=== PATIENT | female | born 1980 | race Caucasian/White ===

== ENCOUNTER 2021-06-24 09:29 | Inpatient (IN) ==
--- NOTE | 2021-06-24 10:56 | XRay Report ---
XR chest 1V portable INDICATION: [place] ^+COVID, SOB, Cough. TECHNIQUE: Single frontal radiograph of the chest was obtained. Comparison: Chest 1 view 07/15/2016 FINDINGS: No lines and tubes are seen. The cardiomediastinal silhouette is normal. Lungs are underinflated. The re are ill-defined airspace opacities most prominent in the left lower lung No evidence of pleural ef fusion or pneumothorax. IMPRESSION: Ill-defined air space opacities most prominent in the left lower lung may represent findings of viral pneumonia. ACT 112: Negative or not required by law. Electronically signed by: Ronan Montenegro M.D. 06/24/2021 10:55 AM
[2021-06-24] MEDS ORDERED: ONDANSETRON INJ 2 MG/ML 2 ML VIAL IV STA (11:48)
[2021-06-24] MEDS ORDERED: DEXAMETHASONE SOD INJ 4 MG/ML VIAL IV STA (11:48)
[2021-06-24] MEDS ORDERED: SODIUM CHLORIDE 0.9% 1000ML 1,000 ML IV SCH (12:00)
[2021-06-24 12:05] LABS: Partial Thromboplastin Ratio 1.1; Partial Thromboplastin Time 28.4 Seconds (21.0-31.0)
[2021-06-24 12:07] LABS: Albumin Level 3.4 gm/dl (3.4-5.0); Calcium 8.1 mg/dl (8.5-10.1); Creatinine Clr Calc Pharmacy 121.2 ml/min; Est GFR (Non-African American) 88.9 ml/min; Magnesium 1.6 mg/dl (1.8-2.4); Potassium 3.3 mmol/L (3.5-5.1)
[2021-06-24 12:09] LABS: Albumin Globulin Ratio 0.9 (0.9-2); Bilirubin,Total 0.6 mg/dl (0.2-1); Globulin 3.7 gm/dl (2.5-4.0); Total Protein 7.1 gm/dl (6.4-8.2)
[2021-06-24 12:32] LABS: Hematocrit (blood only) 41.7 % (37-47); Mean Corpuscular Hemoglobin 29.4 pg (25-34); Mean Corpuscular Hgb Conc 33.6 g/dL (32-36); Mean Corpuscular Volume 87.4 fL (80-100); Mean Platelet Volume 10.9 fL (7.4-10.4); Platelet Count 97 K/uL (130-400); RDW Coefficient of Variation 12.6 % (11.5-14.5); RDW Standard Deviation 40.3 fL (36.4-46.3); Red Blood Count 4.77 M/uL (4.2-5.4); White Blood Count 2.21 K/uL (4.8-10.8)
[2021-06-24 12:33] LABS: Basophils # (auto) 0.01 K/uL (0-0.2); Basophils % (auto) 0.5 %; Eosinophils # (auto) 0.01 K/uL (0-0.5); Eosinophils % (auto) 0.5 %; Immature Granulocytes # (auto) 0.02 K/uL (0.00-0.02); Immature Granulocytes % (auto) 0.9 %; Lymphocytes # (auto) 0.48 K/uL (1.2-3.4); Lymphocytes % (auto) 21.7 %; Monocytes # (auto) 0.16 K/uL (0.11-0.59); Monocytes % (auto) 7.2 %; Neutrophils # (auto) 1.53 K/uL (1.4-6.5); Neutrophils % (auto) 69.2 %; Platelet Estimate Decreased (Normal)
[2021-06-24] MEDS ORDERED: ACETAMINOPHEN 500 MG TAB PO STA (13:25)
[2021-06-24 13:46] LABS: Appearance Urine Slightly Cloudy (Clear); Bilirubin Urine 2+ (Negative); Blood Urine Negative (Negative); Glucose Urine UA Negative (Negative); Ketones Urine 1+ (Negative); Leukocyte Esterase Urine Negative (Negative); Nitrite Urine Negative (Negative); Protein Urine 2+ (Negative); Specific Gravity Urine 1.025 (1.000-1.030); Urobilinogen Urine Negative (Negative)
[2021-06-24 13:54] LABS: Color Urine Dark Yellow
[2021-06-24] MEDS ORDERED: OPTIRAY 320 125ml IV ONE (13:54)
[2021-06-24 13:55] LABS: Lyme Ab IgG w/WB Rflx Negative (Negative); Lyme Ab IgM w/WB Rflx Negative (Negative)
[2021-06-24 13:56] LABS: Epithelial Cell Urine >30 /lpf (0-5)
[2021-06-24 13:56] LABS: Base Excess VBG 0.4 mEq/L; pH VBG 7.46 (7.36-7.41)
[2021-06-24 13:58] LABS: Bacteria Urine Negative (Negative); RBC Urine 0-4 /hpf (0-4); WBC Urine 0-5 /hpf (0-5)
--- NOTE | 2021-06-24 14:14 | CT Scan Report ---
CT ANGIOGRAPHY OF THE CHEST, PULMONARY EMBOLUS PROTOCOL CLINICAL HISTORY: Fever. Cough. Evaluate for pulmonary embolus. COMPARISON STUDY: Chest CT July 15, 2016. Chest radiograph June 24, 2021. TECHNIQUE: Following IV administration of 120 mL of Optiray, helical axial images of the chest were o btained utilizing the pulmonary embolus protocol. Maximal intensity projections and sagittal and cor onal reformats were viewed on an independent 3D workstation. IV contrast was administered without co mplication. Automated exposure control was utilized for the study. A dose lowering technique was ut ilized adhering to the principles of ALARA. CT DOSE: 478.15 mGycm FINDINGS: No pulmonary emboli are identified although this exam is mildly compromised by artifact. T here is no thoracic aortic dissection. No pathologically enlarged thoracic lymph nodes are present. N ote is made of cardiomegaly. There is no pericardial effusion. No pneumothorax is present. Moderate m ultifocal groundglass opacities are noted throughout the lungs with developing right lower lobe conso lidation. Central airways are patent. Visualized portions of the upper abdomen demonstrate splenomega ly. IMPRESSION: 1. No pulmonary emboli identified although exam mildly compromised by artifact. 2. Moderate multifocal groundglass opacities throughout the lungs with developing right lower lobe co nsolidation consistent with viral pneumonia. 3. Cardiomegaly. ACT 112: Negative or not required by law. Electronically signed by: Sedrick Damian M.D. 06/24/2021 2:12 PM
[2021-06-24] MEDS ORDERED: MAGNESIUM SULFATE / D5W 1 GM/100 ML BAG IV STA ×2 (14:44→15:42)
[2021-06-24] MEDS ORDERED: POTASSIUM CHLORIDE CRTAB 20 MEQ TABCR PO STA (14:44)
--- NOTE | 2021-06-24 14:46 | History & Physical Report ---
Date of Service June 24, 2021 Assessment & Plan (1) Acute respiratory failure with hypoxia: (2) Pneumonia due to 2019 novel coronavirus: Plan: This is a 41yo F with a PMH of chronic back pain who presents with fever and body aches x 8 days and was found to have Covid 19. Fever, chills, body aches, pleuritic cough x 8 days, known Covid exposure () Initially hypoxic at 84% on room air, now saturating 91% on 2 L nasal cannula O2 SARS-CoV-2 test positive today Chest CTA without evidence of PE. Moderate multifocal groundglass opacities throughout the lungs with developing right lower lobe consolidation consistent with viral pneumonia Endorsing blood streaked sputum at home, hgb stable, continue to monitor and consider pulm involvement if worsens Continue IV dexamethasone, added Remdesivir, cough suppressants PRN, incentive spirometry, supplemental O2 PRN Covid isolation precautions (3) Migraine headache: Plan: Has developed a migraine headache since arrival Do not have her home med Relpax on formulary but given Imitrex Tylenol and Zofran PRN (4) Chronic back pain: Plan: Gabapentin TID, Flexeril as needed DVT Ppx: SQ Lovenox Code status: FULL PCP: Velma Dispo: Admitted to PCU covid unit Patient seen in collaboration with Dr. Wan. Please see addendum. History of Present Illness Chief Complaint: fever, congestion Primary Care Provider: Jovanny Carreon, This is a 41yo F with a PMH of chronic back pain who presents with fever and body aches x 8 days. First developed fever, chills and body aches as well as diarrhea and decreased appetite. Later on this week she also developed productive cough, and pleuritic chest pain. Patient endorses a small amount of bright red blood streaking mucous. The amount is less than a tea spoon. Lost ability to taste but still has sense of smell. had similar symptoms and tested positive for Covid this week. Is not vaccinated. No respiratory issues at baseline. No lightheadedness, vomiting, abdominal pain, dysuria, diarrhea or constipation. Follows with Dr. Carreon for primary care. Allergies Allergy/AdvReac Type Severity Reaction Status Date / Time No Known Allergies Allergy Verified 06/24/21 12:25 Home Medications Medication Instructions Recorded Confirmed Type Otc Acid Color Worker 1 tab PO DAILY PRN 06/24/21 06/24/21 History cyclobenzaprine 10 mg tablet 10 mg PO TID PRN 06/24/21 06/24/21 History eletriptan 40 mg tablet 40 mg PO UD PRN 06/24/21 06/24/21 History estradiol 0.1 mg/24 hr semiweekly 1 patch TOPICAL [id number] 06/24/21 06/24/21 History transdermal patch (Jazmyn) ibuprofen 200 mg tablet 400 mg PO Q6H PRN 06/24/21 06/24/21 History Past Med/Surg History Medical History (Updated 06/24/21 @ 16:09 by Halle Trevino PA-C) Chronic back pain Migraine headache Surgical History History of hysterectomy Family History Other No pertinent family history Social History (Updated 06/24/21 @ 16:09 by Halle Trevino PA-C) Smoking Status: Never smoker Hx Alcohol Use: Yes Alcohol Intake Frequency: 2-4 x/Month Hx Substance Use: No Feels Safe at Home: Yes Review of Systems Review of Systems: At least ten systems reviewed and negative except as noted in the HPI. Physical Exam Physical Exam: Please see Dr. Wan's addendum for physical exam. Results & Data Results & Data ([facility]) Vital Signs (Past 12 Hours) Vital Signs Temp Pulse Resp BP Pulse Ox 06/24/21 14:30 75 20 163/106 H 92 06/24/21 14:03 76 24 96 06/24/21 13:30 91 H 22 164/110 H 91 06/24/21 13:00 87 26 H 178/125 H 93 06/24/21 12:30 81 24 174/99 H 92 06/24/21 12:16 37.5 C 06/24/21 12:01 76 26 H 142/89 H 94 06/24/21 11:51 84 L 06/24/21 11:30 79 23 155/100 H 90 06/24/21 11:00 79 22 133/88 91 06/24/21 10:30 81 24 130/86 96 06/24/21 10:22 83 20 149/82 H 91 06/24/21 09:34 37.3 C 93 H 16 143/104 H 94 Laboratory Results Short CBC 06/24/21 Range/Units 10:29 WBC 2.21 L (4.8-10.8) K/uL Hgb 14.0 (12.0-16.0) g/dL Hct 41.7 (37-47) % Plt Count 97 L (130-400) K/uL BMP 06/24/21 10:29 Sodium 143 Potassium 3.3 L Chloride 110 H Carbon Dioxide 25 BUN 11 Creatinine 0.82 Glucose 97 Calcium 8.1 L Liver Function 06/24/21 Range/Units 10:29 Total Bilirubin 0.6 (0.2-1) mg/dl AST 60 H (15-37) U/L ALT 78 (12-78) U/L Alkaline Phosphatase 103 (45-117) U/L Albumin 3.4 (3.4-5.0) gm/dl Urine 06/24/21 Range/Units 10:20 Urine Color Dark Yellow Urine Appearance Slightly Cloudy (Clear) Urine pH 6.0 (4.5-7.5) Ur Specific Happy 1.025 (1.000-1.030) Urine Protein 2+ H (Negative) Urine Glucose (UA) Negative (Negative) Diagnostic Findings Chest X-Ray 06/24/21 10:15 XR chest 1V portable INDICATION: [place] ^+COVID, SOB, Cough. TECHNIQUE: Single frontal radiograph of the chest was obtained. Comparison: Chest 1 view 07/15/2016 FINDINGS: No lines and tubes are seen. The cardiomediastinal silhouette is normal. Lungs are underinflated. There are ill-defined airspace opacities most prominent in the left lower lung No evidence of pleural effusion or pneumothorax. IMPRESSION: Ill-defined air space opacities most prominent in the left lower lung may represent findings of viral pneumonia. ACT 112: Negative or not required by law. Electronically signed by: Ronan Montenegro M.D. 06/24/2021 10:55 AM Chest CTA 06/24/21 12:39 CT ANGIOGRAPHY OF THE CHEST, PULMONARY EMBOLUS PROTOCOL CLINICAL HISTORY: Fever. Cough. Evaluate for pulmonary embolus. COMPARISON STUDY: Chest CT July 15, 2016. Chest radiograph June 24, 2021. TECHNIQUE: Following IV administration of 120 mL of Optiray, helical axial images of the chest were obtained utilizing the pulmonary embolus protocol. Maximal intensity projections and sagittal and coronal reformats were viewed on an independent 3D workstation. IV contrast was administered without complication. Automated exposure control was utilized for the study. A dose lo wering technique was utilized adhering to the principles of ALARA. CT DOSE: 478.15 mGycm FINDINGS: No pulmonary emboli are identified although this exam is mildly compromised by artifact. There is no thoracic aortic dissection. No pathologically enlarged thoracic lymph nodes are present. Note is made of cardiomegaly. There is no pericardial effusion. No pneumothorax is present. Moderate multifocal groundglass opacities are noted throughout the lungs with developing right lower lobe consolidation. Central airways are patent. Visualized portions of the upper abdomen demonstrate splenomegaly. IMPRESSION: 1. No pulmonary emboli identified although exam mildly compromised by artifact. 2. Moderate multifocal groundglass opacities throughout the lungs with developing right lower lobe consolidation consistent with viral pneumonia. 3. Cardiomegaly. ACT 112: Negative or not required by law. Electronically signed by: Sedrick Damian M.D. 06/24/2021 2:12 PM Code Status & VTE Plan VTE Prophylaxis Plan VTE Prophylaxis will be ordered: Yes
[2021-06-24] MEDS ORDERED: POTASSIUM CHLORIDE 10 MEQ TABCR PO STA (15:41)
--- NOTE | 2021-06-24 15:41 | Emergency Department Note ---
History of Present Illness General Chief complaint: Fever Stated complaint: FEVER,CHILLS,VOMITING BLOOD, LIGHT HEADED Time Seen by Provider: 06/24/21 10:06 History of Present Illness Provider complaint: Cough nausea vomiting diarrhea fever body aches Onset (ago): day(s) 8 Maximum Pain Intensity: 8 Quality: + aching Associated symptoms: + cough, + fever/chills, + headaches, + malaise, + nausea/vomiting, + shortness of breath and + weakness; no chest pain, no rash or no syncope 41-year-old female presents emergency department for cough, nausea, vomiting, diarrhea, fever, and body aches. Patient reports her cough has been so bad she has been coughing up mucus that is. No winifred mopped assist. recently tested positive for COVID-19. Patient states her symptoms been going on for last 8 days. Patient states she was unimmunized against COVID-19. Home Medications Medication Instructions Recorded Confirmed Type Otc Acid [employer] Consultant 1 tab PO DAILY PRN 06/24/21 06/24/21 History cyclobenzaprine 10 mg tablet 10 mg PO TID PRN 06/24/21 06/24/21 History eletriptan 40 mg tablet 40 mg PO UD PRN 06/24/21 06/24/21 History estradiol 0.1 mg/24 hr semiweekly 1 patch TOPICAL 2XWK 06/24/21 06/24/21 History transdermal patch (Jazmyn) ibuprofen 200 mg tablet 400 mg PO Q6H PRN 06/24/21 06/24/21 History Allergies Allergy/AdvReac Type Severity Reaction Status Date / Time No Known Allergies Allergy Verified 06/24/21 12:25 Past Med/Surg History Medical History (Updated 06/24/21 @ 15:46 by Yovani Pop) No pertinent family history No pertinent past medical history Surgical History (Updated 06/24/21 @ 15:37 by Yovani Pop) History of hysterectomy Social History Smoking Status: Never smoker Feels Safe at Home: Yes Review of Systems A total of 10 systems reviewed and were otherwise negative Physical Exam Vital Signs Vital Signs - 24 hr 06/24/21 09:34 06/24/21 10:22 06/24/21 10:30 Temperature 37.3 C Temperature Source Oral Pulse Rate 93 H 83 81 Pulse Rate from SpO2 Sensor 81 Respiratory Rate 16 20 24 Blood Pressure 143/104 H 149/82 H 130/86 Blood Pressure Mean 117 104 100 Pulse Oximetry 94 91 96 Oxygen Delivery Method Room Air Room Air Room Air Oxygen Flow Rate Sepsis Recent Fever Within 48 Hours No Sepsis New/Unexplained Change in Mental Status No Sepsis Action Taken by Nursing No Action Required 06/24/21 11:00 06/24/21 11:30 06/24/21 11:51 Temperature Temperature Source Pulse Rate 79 79 Pulse Rate from SpO2 Sensor 79 78 Respiratory Rate 22 23 Blood Pressure 133/88 155/100 H Blood Pressure Mean 103 118 Pulse Oximetry 91 90 84 L Oxygen Delivery Method Room Air Oxygen Flow Rate Sepsis Recent Fever Within 48 Hours Sepsis New/Unexplained Change in Mental Status Sepsis Action Taken by Nursing 06/24/21 12:01 06/24/21 12:16 06/24/21 12:30 Temperature 37.5 C Temperature Source Oral Pulse Rate 76 81 Pulse Rate from SpO2 Sensor 77 82 Respiratory Rate 26 H 24 Blood Pressure 142/89 H 174/99 H Blood Pressure Mean 106 124 Pulse Oximetry 94 92 Oxygen Delivery Method Nasal Cannula Oxygen Flow Rate 2 Sepsis Recent Fever Within 48 Hours Sepsis New/Unexplained Change in Mental Status Sepsis Action Taken by Nursing 06/24/21 13:00 06/24/21 13:30 06/24/21 14:03 Temperature Temperature Source Pulse Rate 87 91 H 76 Pulse Rate from SpO2 Sensor 86 90 76 Respiratory Rate 26 H 22 24 Blood Pressure 178/125 H 164/110 H Blood Pressure Mean 142 128 Pulse Oximetry 93 91 96 Oxygen Delivery Method Oxygen Flow Rate Sepsis Recent Fever Within 48 Hours Sepsis New/Unexplained Change in Mental Status Sepsis Action Taken by Nursing 06/24/21 14:30 06/24/21 15:00 Temperature Temperature Source Pulse Rate 75 77 Pulse Rate from SpO2 Sensor 75 77 Respiratory Rate 20 22 Blood Pressure 163/106 H 159/99 H Blood Pressure Mean 125 119 Pulse Oximetry 92 92 Oxygen Delivery Method Oxygen Flow Rate Sepsis Recent Fever Within 48 Hours Sepsis New/Unexplained Change in Mental Status Sepsis Action Taken by Nursing Physical Exam GENERAL: She is oriented to person, place, and time. She appears well-developed and well-nourished. She does not appear distressed. HENT: Exam performed. -Head: Normocephalic and atraumatic. -Right Ear: External ear normal. No mastoid tenderness. -Left Ear: External ear normal. No mastoid tenderness. -Mouth/Throat: The oropharynx is clear and moist. No trismus in the jaw. No dental abscesses or uvula swelling. No oropharyngeal exudate or tonsillar abscesses. EYES: Conjunctivae and EOM are normal. Pupils are equal, round, and reactive to light. Right eye exhibits no discharge. Left eye exhibits no discharge. No scleral icterus. NECK: Normal range of motion. Neck supple. No JVD present. No spinous process tenderness present. No carotid bruit present. No rigidity. No tracheal deviation and normal range of motion present. No Brudzinski's sign and no Kernig's sign noted. CV: Normal rate, regular rhythm, normal heart sounds and intact distal pulses. There is no peripheral edema. Palpable radial pulses bue. PULM/CHEST: Rhonchi bilaterally. ABD: The abdomen is soft. Bowel sounds are normal. She has no distension. No mass is present. There is no tenderness. There is no rebound, no guarding, no Singer's sign and no tenderness at McBurney's point. Rovsig negative MUSC/SKEL: Normal range of motion. There is no peripheral edema, tenderness or deformity. LYMPH: No cervical adenopathy. NEURO: She is alert and oriented to person, place, and time. She has normal s trength. No cranial nerve deficit or sensory deficit. Coordination and gait normal. GCS eye subscore is 4. GCS verbal subscore is 5. GCS motor subscore is 6. Cerebellar tests wnl. SKIN: Skin is warm and dry. She is not diaphoretic. PSYCH: She has a normal mood and affect. Behavior is normal. Judgment and thought content normal. Course Course 1006: The patient was evaluated in room B8. A complete history and physical exam was performed Cardiac monitoring: An order was placed for continuous cardiac monitoring. The monitor shows a rate of 80 with sinus rhythm 1150: Patient became hypoxic on room air. Decadron 6 mg IV push ordered for the patient. Supplemental oxygen was provided via nasal cannulae which improved the patient's oxygen saturation. 1430: Vital signs stable on supplemental oxygen via nasal cannula. Labs show leukopenia of 2.21. Platelet count down to 97. VBG within normal limits. Potassium 3.3. Will be replaced in the emergency department. Magnesium 1.6 also will be replaced. Patient is Covid positive. CTA of the chest negative for PE but does show bilateral groundglass opacities. Given the patient's hypoxia the patient will be admitted to the [facility] team spoke with Halle Trevino who stated to admit to Dr. Garber Administered Medications Magnesium Sulfate/Dextrose (Magnesium Sulfate / D5w) 1 gm in 100 mls @ 50 mls/hr IV ONE STA Stop: 06/24/21 16:43 Last Admin: 06/24/21 14:59 Dose: 50 mls/hr Documented by: [id number] Discontinued Medications Acetaminophen (Acetaminophen 500 Mg Tab) 1,000 mg PO NOW STA Stop: 06/24/21 13:26 Last Admin: 06/24/21 13:31 Dose: 1,000 mg Documented by: [id number] Dexamethasone (Dexamethasone Sod Inj 4 Mg/Ml Vial) 6 mg IV NOW STA Stop: 06/24/21 11:49 Last Admin: 06/24/21 12:00 Dose: 6 mg Documented by: [id number] Sodium Chloride (Nss 1000ml) 1,000 mls @ 999 mls/hr IV .Q1H1M STIVEN Stop: 06/24/21 13:00 Last Infusion: 06/24/21 14:41 Dose: 0 mls/hr Documented by: [id number] Admin: 06/24/21 13:02 Dose: 999 mls/hr Documented by: [id number] Ioversol (Optiray 320 125ml) 120 ml IV ONCE ONE Stop: 06/24/21 13:55 Last Admin: 06/24/21 13:55 Dose: 120 ml Documented by: [id number] Ondansetron HCl (Ondansetron Inj 2 Mg/Ml 2 Ml Vial) 4 mg IV NOW STA Stop: 06/24/21 11:49 Last Admin: 06/24/21 12:00 Dose: 4 mg Documented by: [id number] Potassium Chloride (Potassium Chloride Crtab 20 Meq Tabcr) 40 meq PO NOW STA Stop: 06/24/21 14:45 Last Admin: 06/24/21 14:59 Dose: 40 meq Documented by: [id number] Critical Care Time Critical Care Time: Yes Total Critical Care Time: 41 I have personally spent greater than 41 minutes of critical care time in the direct management of this patient. This includes bedside care, interpretation of diagnostic studies, and testing, discussion with consultants, patient, and family members, and other required patient management activities. This 41 minutes is in excess of all separately billable procedures. Medical Decision Making Laboratory Data Result diagrams: 06/24/21 10:29 06/24/21 10:29 Lab Results 06/24/21 06/24/21 06/24/21 Range/Units 10:20 10:29 10:29 WBC 2.21 L (4.8-10.8) K/uL RBC 4.77 (4.2-5.4) M/uL Hgb 14.0 (12.0-16.0) g/dL Hct 41.7 (37-47) % MCV 87.4 (80-100) fL MCH 29.4 (25-34) pg MCHC 33.6 (32-36) g/dL RDW Std Deviation 40.3 (36.4-46.3) fL RDW Coeff of Paul 12.6 (11.5-14.5) % Plt Count 97 L (130-400) K/uL MPV 10.9 H (7.4-10.4) fL Immature Gran % (Auto) 0.9 % Neut % (Auto) 69.2 % Lymph % (Auto) 21.7 % Nuckolls % (Auto) 7.2 % Eos % (Auto) 0.5 % Baso % (Auto) 0.5 % Neut # (Auto) 1.53 (1.4-6.5) K/uL Lymph # (Auto) 0.48 L (1.2-3.4) K/uL Nuckolls # (Auto) 0.16 (0.11-0.59) K/uL Eos # (Auto) 0.01 (0-0.5) K/uL Baso # (Auto) 0.01 (0-0.2) K/uL Immature Gran # (Auto) 0.02 (0.00-0.02) K/uL Platelet Estimate Decreased L (Normal) PT 10.0 (9.0-12.0) Seconds INR 1.0 (0.9-1.1) APTT 28.4 (21.0-31.0) Seconds PTT Ratio 1.1 VBG pH VBG pCO2 VBG pO2 VBG HCO3 VBG O2 Saturation VBG Base Excess Barometric Pressure Sodium (136-145) mmol/L Potassium (3.5-5.1) mmol/L Chloride (98-107) mmol/L Carbon Dioxide (21-32) mmol/L Anion Gap (3-11) BUN (7-18) mg/dl Creatinine (0.6-1.2) mg/dl Est Cr Clr Drug Dosing ml/min Est GFR ( Amer) ml/min Est GFR (Non-Af Amer) ml/min BUN/Creatinine Ratio (10-20) Glucose (70-99) mg/dl Lactate (0.4-2.0) mmol/L Calcium (8.5-10.1) mg/dl Magnesium (1.8-2.4) mg/dl Total Bilirubin (0.2-1) mg/dl AST (15-37) U/L ALT (12-78) U/L Alkaline Phosphatase (45-117) U/L Total Protein (6.4-8.2) gm/dl Albumin (3.4-5.0) gm/dl Globulin (2.5-4.0) gm/dl Albumin/Globulin Ratio (0.9-2) Urine Color Dark Yellow Urine Appearance Slightly Cloudy (Clear) Urine pH 6.0 (4.5-7.5) Ur Specific Quinter 1.025 (1.000-1.030) Urine Protein 2+ H (Negative) Urine Glucose (UA) Negative (Negative) Urine Ketones 1+ H (Negative) Urine Blood Negative (Negative) Urine Nitrite Negative (Negative) Urine Bilirubin 2+ H (Negative) Urine Urobilinogen Negative (Negative) Ur Leukocyte Esterase Negative (Negative) Urine RBC 0-4 (0-4) /hpf Urine WBC 0-5 (0-5) /hpf Ur Epithelial Cells >30 H (0-5) /lpf Urine Bacteria Negative (Negative) Anaplasma Smear Lyme Disease IgG Ab (Negative) Lyme Disease IgM Ab (Negative) COVID-19 Eval Order SARS-CoV-2 (PCR) (Negative) 06/24/21 06/24/21 06/24/21 Range/Units 10:29 10:32 10:32 WBC (4.8-10.8) K/uL RBC (4.2-5.4) M/uL Hgb (12.0-16.0) g/dL Hct (37-47) % MCV (80-100) fL MCH (25-34) pg MCHC (32-36) g/dL RDW Std Deviation (36.4-46.3) fL RDW Coeff of Paul (11.5-14.5) % Plt Count (130-400) K/uL MPV (7.4-10.4) fL Immature Gran % (Auto) % Neut % (Auto) % Lymph % (Auto) % Nuckolls % (Auto) % Eos % (Auto) % Baso % (Auto) % Neut # (Auto) (1.4-6.5) K/uL Lymph # (Auto) (1.2-3.4) K/uL Nuckolls # (Auto) (0.11-0.59) K/uL Eos # (Auto) (0-0.5) K/uL Baso # (Auto) (0-0.2) K/uL Immature Gran # (Auto) (0.00-0.02) K/uL Platelet Estimate (Normal) PT (9.0-12.0) Seconds INR (0.9-1.1) APTT (21.0-31.0) Seconds PTT Ratio VBG pH VBG pCO2 VBG pO2 VBG HCO3 VBG O2 Saturation VBG Base Excess Barometric Pressure Sodium 143 (136-145) mmol/L Potassium 3.3 L (3.5-5.1) mmol/L Chloride 110 H (98-107) mmol/L Carbon Dioxide 25 (21-32) mmol/L Anion Gap 8.0 (3-11) BUN 11 (7-18) mg/dl Creatinine 0.82 (0.6-1.2) mg/dl Est Cr Clr Drug Dosing 121.2 ml/min Est GFR ( Amer) 103.0 ml/min Est GFR (Non-Af Amer) 88.9 ml/min BUN/Creatinine Ratio 13.0 (10-20) Glucose 97 (70-99) mg/dl Lactate (0.4-2.0) mmol/L Calcium 8.1 L (8.5-10.1) mg/dl Magnesium 1.6 L (1.8-2.4) mg/dl Total Bilirubin 0.6 (0.2-1) mg/dl AST 60 H (15-37) U/L ALT 78 (12-78) U/L Alkaline Phosphatase 103 (45-117) U/L Total Protein 7.1 (6.4-8.2) gm/dl Albumin 3.4 (3.4-5.0) gm/dl Globulin 3.7 (2.5-4.0) gm/dl Albumin/Globulin Ratio 0.9 (0.9-2) Urine Color Urine Appearance (Clear) Urine pH (4.5-7.5) Ur Specific Quinter (1.000-1.030) Urine Protein (Negative) Urine Glucose (UA) (Negative) Urine Ketones (Negative) Urine Blood (Negative) Urine Nitrite (Negative) Urine Bilirubin (Negative) Urine Urobilinogen (Negative) Ur Leukocyte Esterase (Negative) Urine RBC (0-4) /hpf Urine WBC (0-5) /hpf Ur Epithelial Cells (0-5) /lpf Urine Bacteria (Negative) Anaplasma Smear Lyme Disease IgG Ab (Negative) Lyme Disease IgM Ab (Negative) COVID-19 Eval Order Covid19 at [facility] SARS-CoV-2 (PCR) POSITIVE A* (Negative) 06/24/21 06/24/21 06/24/21 Range/Units 12:46 12:46 12:54 WBC (4.8-10.8) K/uL RBC (4.2-5.4) M/uL Hgb (12.0-16.0) g/dL Hct (37-47) % MCV (80-100) fL MCH (25-34) pg MCHC (32-36) g/dL RDW Std Deviation (36.4-46.3) fL RDW Coeff of Paul (11.5-14.5) % Plt Count (130-400) K/uL MPV (7.4-10.4) fL Immature Gran % (Auto) % Neut % (Auto) % Lymph % (Auto) % Nuckolls % (Auto) % Eos % (Auto) % Baso % (Auto) % Neut # (Auto) (1.4-6.5) K/uL Lymph # (Auto) (1.2-3.4) K/uL Nuckolls # (Auto) (0.11-0.59) K/uL Eos # (Auto) (0-0.5) K/uL Baso # (Auto) (0-0.2) K/uL Immature Gran # (Auto) (0.00-0.02) K/uL Platelet Estimate (Normal) PT (9.0-12.0) Seconds INR (0.9-1.1) APTT (21.0-31.0) Seconds PTT Ratio VBG pH Cancelled VBG pCO2 Cancelled VBG pO2 Cancelled VBG HCO3 Cancelled VBG O2 Saturation Cancelled VBG Base Excess Cancelled Barometric Pressure Cancelled Sodium (136-145) mmol/L Potassium (3.5-5.1) mmol/L Chloride (98-107) mmol/L Carbon Dioxide (21-32) mmol/L Anion Gap (3-11) BUN (7-18) mg/dl Creatinine (0.6-1.2) mg/dl Est Cr Clr Drug Dosing ml/min Est GFR ( Amer) ml/min Est GFR (Non-Af Amer) ml/min BUN/Creatinine Ratio (10-20) Glucose (70-99) mg/dl Lactate 1.3 (0.4-2.0) mmol/L Calcium (8.5-10.1) mg/dl Magnesium (1.8-2.4) mg/dl Total Bilirubin (0.2-1) mg/dl AST (15-37) U/L ALT (12-78) U/L Alkaline Phosphatase (45-117) U/L Total Protein (6.4-8.2) gm/dl Albumin (3.4-5.0) gm/dl Globulin (2.5-4.0) gm/dl Albumin/Globulin Ratio (0.9-2) Urine Color Urine Appearance (Clear) Urine pH (4.5-7.5) Ur Specific Quinter (1.000-1.030) Urine Protein (Negative) Urine Glucose (UA) (Negative) Urine Ketones (Negative) Urine Blood (Negative) Urine Nitrite (Negative) Urine Bilirubin (Negative) Urine Urobilinogen (Negative) Ur Leukocyte Esterase (Negative) Urine RBC (0-4) /hpf Urine WBC (0-5) /hpf Ur Epithelial Cells (0-5) /lpf Urine Bacteria (Negative) Anaplasma Smear See Comment Lyme Disease IgG Ab (Negative) Lyme Disease IgM Ab (Negative) COVID-19 Eval Order SARS-CoV-2 (PCR) (Negative) 06/24/21 06/24/21 Range/Units 12:54 13:19 WBC (4.8-10.8) K/uL RBC (4.2-5.4) M/uL Hgb (12.0-16.0) g/dL Hct (37-47) % MCV (80-100) fL MCH (25-34) pg MCHC (32-36) g/dL RDW Std Deviation (36.4-46.3) fL RDW Coeff of Paul (11.5-14.5) % Plt Count (130-400) K/uL MPV (7.4-10.4) fL Immature Gran % (Auto) % Neut % (Auto) % Lymph % (Auto) % Nuckolls % (Auto) % Eos % (Auto) % Baso % (Auto) % Neut # (Auto) (1.4-6.5) K/uL Lymph # (Auto) (1.2-3.4) K/uL Nuckolls # (Auto) (0.11-0.59) K/uL Eos # (Auto) (0-0.5) K/uL Baso # (Auto) (0-0.2) K/uL Immature Gran # (Auto) (0.00-0.02) K/uL Platelet Estimate (Normal) PT (9.0-12.0) Seconds INR (0.9-1.1) APTT (21.0-31.0) Seconds PTT Ratio VBG pH 7.46 H VBG pCO2 34 L VBG pO2 43 VBG HCO3 24 VBG O2 Saturation 81.0 VBG Base Excess 0.4 Barometric Pressure 732.7 Sodium (136-145) mmol/L Potassium (3.5-5.1) mmol/L Chloride (98-107) mmol/L Carbon Dioxide (21-32) mmol/L Anion Gap (3-11) BUN (7-18) mg/dl Creatinine (0.6-1.2) mg/dl Est Cr Clr Drug Dosing ml/min Est GFR ( Amer) ml/min Est GFR (Non-Af Amer) ml/min BUN/Creatinine Ratio (10-20) Glucose (70-99) mg/dl Lactate (0.4-2.0) mmol/L Calcium (8.5-10.1) mg/dl Magnesium (1.8-2.4) mg/dl Total Bilirubin (0.2-1) mg/dl AST (15-37) U/L ALT (12-78) U/L Alkaline Phosphatase (45-117) U/L Total Protein (6.4-8.2) gm/dl Albumin (3.4-5.0) gm/dl Globulin (2.5-4.0) gm/dl Albumin/Globulin Ratio (0.9-2) Urine Color Urine Appearance (Clear) Urine pH (4.5-7.5) Ur Specific Quinter (1.000-1.030) Urine Protein (Negative) Urine Glucose (UA) (Negative) Urine Ketones (Negative) Urine Blood (Negative) Urine Nitrite (Negative) Urine Bilirubin (Negative) Urine Urobilinogen (Negative) Ur Leukocyte Esterase (Negative) Urine RBC (0-4) /hpf Urine WBC (0-5) /hpf Ur Epithelial Cells (0-5) /lpf Urine Bacteria (Negative) Anaplasma Smear Lyme Disease IgG Ab Negative (Negative) Lyme Disease IgM Ab Negative (Negative) COVID-19 Eval Order SARS-CoV-2 (PCR) (Negative) Imaging Data Radiologist's Impression: Chest X-Ray 06/24/21 10:15 XR chest 1V portable INDICATION: [place] ^+COVID, SOB, Cough. TECHNIQUE: Single frontal radiograph of the chest was obtained. Comparison: Chest 1 view 07/15/2016 FINDINGS: No lines and tubes are seen. The cardiomediastinal silhouette is normal. Lungs are underinflated. There are ill-defined airspace opacities most prominent in the left lower lung No evidence of pleural effusion or pneumothorax. IMPRESSION: Ill-defined air space opacities most prominent in the left lower lung may represent findings of viral pneumonia. ACT 112: Negative or not required by law. Electronically signed by: Ronan Montenegro M.D. 06/24/2021 10:55 AM Chest CTA 06/24/21 12:39 CT ANGIOGRAPHY OF THE CHEST, PULMONARY EMBOLUS PROTOCOL CLINICAL HISTORY: Fever. Cough. Evaluate for pulmonary embolus. COMPARISON STUDY: Chest CT July 15, 2016. Chest radiograph June 24, 2021. TECHNIQUE: Following IV administration of 120 mL of Optiray, helical axial images of the chest were obtained utilizing the pulmonary embolus protocol. Maximal intensity projections and sagittal and coronal reformats were viewed on an independent 3D workstation. IV contrast was administered without complication. Automated exposure control was utilized for the study. A dose lowering technique was utilized adhering to the principles of ALARA. CT DOSE: 478.15 mGycm FINDINGS: No pulmonary emboli are identified although this exam is mildly compromised by artifact. There is no thoracic aortic dissection. No pathologically enlarged thoracic lymph nodes are present. Note is made of cardiomegaly. There is no pericardial effusion. No pneumothorax is present. Moderate multifocal groundglass opacities are noted throughout the lungs with developing right lower lobe consolidation. Central airways are patent. Visualized portions of the upper abdomen demonstrate splenomegaly. IMPRESSION: 1. No pulmonary emboli identified although exam mildly compromised by artifact. 2. Moderate multifocal groundglass opacities throughout the lungs with developing right lower lobe consolidation consistent with viral pneumonia. 3. Cardiomegaly. ACT 112: Negative or not required by law. Electronically signed by: Sedrick Damian M.D. 06/24/2021 2:12 PM ECG Data Indication: + SOB/dyspnea Rate (beats per minute): 75 Rhythm: + normal sinus ECG Intervals/blocks: + Normal QRS, + Normal MO and + Normal QT-c ECG ST segments: + Normal ST segments MDM Narrative 1006: The patient was evaluated in room B8. A complete history and physical exam was performed Cardiac monitoring: An order was placed for continuous cardiac monitoring. The monitor shows a rate of 80 with sinus rhythm 1150: Patient became hypoxic on room air. Decadron 6 mg IV push ordered for the patient. Supplemental oxygen was provided via nasal cannulae which improved the patient's oxygen saturation. 1430: Vital signs stable on supplemental oxygen via nasal cannula. Labs show leukopenia of 2.21. Platelet count down to 97. VBG within normal limits. Potassium 3.3. Will be replaced in the emergency department. Magnesium 1.6 also will be replaced. Patient is Covid positive. CTA of the chest negative for PE but does show bilateral groundglass opacities. Given the patient's hypoxia the patient will be admitted to the [facility] team spoke with Halle Trevino who stated to admit to Dr. Garber Impression & Plan Hypoxia, Pneumonia due to 2019 novel coronavirus Discharge Plan Visit Data Chief Complaint: Fever Stated Complaint: FEVER,CHILLS,VOMITING BLOOD, LIGHT HEADED ED Provider: Yovani Pop Discharge Problem: Hypoxia, Pneumonia due to 2019 novel coronavirus Patient Disposition: Admitted As Inpatient Forms Stand Alone Forms: [facility] Prescriptions Prescriptions: No Action cyclobenzaprine 10 mg tablet 10 mg PO TID PRN (Reason: Muscle Spasm) RF: 0 estradiol [Jazmyn] 0.1 mg/24 hr patch semiweekly 1 patch topical 2XWK RF: 0 ibuprofen 200 mg Tablet 400 mg PO Q6H PRN (Reason: Pain) RF: 0 eletriptan 40 mg Tablet 40 mg PO UD PRN (Reason: Migraine Headache) RF: 0 Otc Acid [employer] Consultant 1 tab PO DAILY PRN (Reason: Acid Reflux) RF: 0 Referrals Referrals: Jovanny Carreon DO [Primary Care Provider] -
[2021-06-24] MEDS ORDERED: BENZONATATE 100 MG CAPSULE PO ONE (15:55)
[2021-06-24] MEDS ORDERED: REMDESIVIR 200 MG in SODIUM CHLORIDE 0.9% 210 ML IV ONE (16:00)
[2021-06-24] MEDS ORDERED: SUMAtriptan succinate 50 MG TAB PO ONE (16:06)
--- NOTE | 2021-06-24 16:32 | Electrocardiogram Report ---
Test Reason : Blood Pressure : / mmHG Vent. Rate : 075 BPM Atrial Rate : 075 BPM P-R Int : 180 ms QRS Dur : 090 ms QT Int : 392 ms P-R-T Axes : 024 -06 011 degrees QTc Int : 437 ms Normal sinus rhythm Nonspecific ST and T wave abnormality Abnormal ECG When compared with ECG of 15-JUL-2016 14:46, Nonspecific T wave abnormality now evident in Inferior leads Nonspecific T wave abnormality, worse in Anterolateral leads Confirmed by August Wilson ([id number]) on 06/24/2021 4:32:15 PM Referred By: Jovanny Carreon Confirmed By:August Wilson
[2021-06-24] MEDS ORDERED: CYCLOBENZAPRINE HCL 10 MG TAB PO PRN (17:47)
[2021-06-24] MEDS: SODIUM CHLORIDE 0.9% 10ML FLUSH IV SCH (18:09)
[2021-06-24] MEDS ORDERED: SUMAtriptan succinate 50 MG TAB PO PRN (20:17)
[2021-06-24] MEDS: ONDANSETRON INJ 2 MG/ML 2 ML VIAL IV PRN ×2 (20:36→23:07)
[2021-06-24] MEDS ORDERED: ESTRADIOL 0.1 MG/HR TDSY TD SCH (21:00)
[2021-06-24] MEDS ORDERED: POLYETHYLENE (MIRALAX) 17 GM PACK PO PRN (21:46)
[2021-06-24] MEDS: guaiFENesin/CODEINE 100MG/10MG 5ML UDC PO PRN (23:07)
[2021-06-24] MEDS: ENOXAPARIN INJ 40 MG/0.4 ML SYR SQ SCH (23:08)
[2021-06-24] MEDS: GABAPENTIN 300 MG CAP PO SCH (23:08)
[2021-06-25] MEDS ORDERED: COUGH DROP (SUGAR FREE) LOZ 24 LOZ/1 BOX BUCCAL ONE (02:00)
[2021-06-25] MEDS: BENZONATATE 100 MG CAPSULE PO PRN ×3 (02:03→17:51)
[2021-06-25] MEDS: guaiFENesin/CODEINE 100MG/10MG 5ML UDC PO PRN ×3 (05:07→23:34)
[2021-06-25] MEDS: ACETAMINOPHEN 325 MG TAB PO PRN (05:07)
[2021-06-25] MEDS: CALCIUM CARBONATE 500 MG CHEWABLE TAB PO PRN (05:07)
[2021-06-25] MEDS ORDERED: SUMAtriptan succinate 50 MG TAB PO STA ×2 (05:50→18:04)
[2021-06-25] MEDS: dexAMETHasone 6 MG in SYRINGE 0 ML IV SCH (06:09)
[2021-06-25 06:16] LABS: Hematocrit (blood only) 38.1 % (37-47); Hemoglobin 12.6 g/dL (12.0-16.0); Mean Corpuscular Hemoglobin 28.8 pg (25-34); Mean Corpuscular Hgb Conc 33.1 g/dL (32-36); Mean Corpuscular Volume 87.2 fL (80-100); RDW Coefficient of Variation 12.5 % (11.5-14.5); RDW Standard Deviation 40.2 fL (36.4-46.3); Red Blood Count 4.37 M/uL (4.2-5.4); White Blood Count 2.25 K/uL (4.8-10.8)
[2021-06-25 06:24] LABS: Platelet Count 96 K/uL (130-400)
[2021-06-25 06:50] LABS: BUN Creatinine Ratio 20.9 (10-20); Calcium 7.8 mg/dl (8.5-10.1); Creatinine Clr Calc Pharmacy 187.4 ml/min; Est GFR (African American) 136.7 ml/min; Est GFR (Non-African American) 117.9 ml/min; Magnesium 2.1 mg/dl (1.8-2.4); Potassium 3.4 mmol/L (3.5-5.1)
[2021-06-25 06:52] LABS: Albumin Globulin Ratio 0.9 (0.9-2); Bilirubin,Total 0.5 mg/dl (0.2-1); Globulin 3.3 gm/dl (2.5-4.0); Total Protein 6.3 gm/dl (6.4-8.2)
[2021-06-25] MEDS ORDERED: POTASSIUM CHLORIDE CRTAB 20 MEQ TABCR PO STA (07:49)
[2021-06-25] MEDS: GABAPENTIN 300 MG CAP PO SCH ×3 (08:22→21:00)
[2021-06-25] MEDS: ENOXAPARIN INJ 40 MG/0.4 ML SYR SQ SCH ×2 (08:22→21:00)
[2021-06-25] MEDS ORDERED: dexAMETHasone 6 MG in SYRINGE 0 ML IV SCH (09:00)
[2021-06-25] MEDS ORDERED: DEXAMETHASONE SOD INJ 4 MG/ML VIAL IV SCH (09:00)
[2021-06-25] MEDS: ONDANSETRON INJ 2 MG/ML 2 ML VIAL IV PRN (11:57)
[2021-06-25] MEDS ORDERED: Nursing to Pharmacy Communication SCH (15:00)
--- NOTE | 2021-06-25 16:35 | Hospitalist Progress Note ---
Date of Service June 25, 2021 Assessment & Plan (1) Acute respiratory failure with hypoxia: (2) Pneumonia due to 2019 novel coronavirus: Plan: Present on admission with fever, pleuritic cough, body aches and hypoxia on RA Testing positive for COVID-19 Patient was not vaccinated against COVID-19 CTA chest showed no pulmonary emboli identified although exam mildly compromised by artifact. Moderate multifocal groundglass opacities throughout the lungs with developing right lower lobe consolidation consistent with viral pneumoni Currently requiring 2 L of oxygen via NC Continue with dexamethasone 6 mg IV daily and remdesivir Will monitor LFT while on Remdesivir Will check Inflammatory elevated marker such as ESR, ferritin, and C-reactive protein Normal Procalcitonin and lactic acid Continue supportive care with nebs, flutter valve, incentive spirometer (3) Migraine headache: Plan: Has developed a migraine headache since arrival Do not have her home med Relpax on formulary but given Imitrex Tylenol and Zofran PRN (4) Transaminitis: Plan: Liver enzyme elevated with AST 72 and ALT 89 We will monitor LFT while on IV remdesivir Hypokalemia Mostly due to poor oral intake Potassium 3.4 today, replaced Monitor BMP (5) Chronic back pain: Plan: Gabapentin TID, Flexeril as needed DVT Ppx: SQ Lovenox Code status: FULL PCP: Velma Dispo: Continue monitor closely PCU Admission and Anticipated Discharge Date Admission Date: June 24, 2021 Subjective Patient was seen and examined for follow-up of shortness of breath due to COVID- 19 Lying in bed with mild acute respiratory distress Patient said every time she coughs, she has chest wall tenderness She said that her cough is dry and headache she continues to require oxygen supplement Denies any the chest pain, palpitation, dizziness and fever. Review of Systems Review of Systems: All systems reviewed & are unremarkable except as noted in Subjective Physical Exam Physical Exam: General- No acute distress Head- atraumatic Eyes- PERRL, EOMI, ENT- oropharynx clear Neck- supple, no JVD Lungs- diminished BS Heart- regular rhythm; no murmur Abdomen- normal bowel sounds, soft, nontender Extremities- no calf tenderness Neuro- alert, oriented x 3; PERRL, EOMI; no facial palsy; no dysarthria Skin- warm & dry f Results & Data Results & Data ([facility]) Vital Signs (Past 12 Hours) Vital Signs Temp Pulse Pulse Resp BP Pulse Ox 06/25/21 15:45 37.2 C 70 24 122/80 92 06/25/21 11:48 37.2 C 64 19 143/86 H 92 06/25/21 10:47 37.0 C 67 21 131/79 93 06/25/21 10:08 71 06/25/21 07:58 37.2 C 65 17 132/85 94
[2021-06-25] MEDS: REMDESIVIR 100 MG in SODIUM CHLORIDE 0.9% 230 ML IV SCH (19:38)
[2021-06-25] MEDS: SODIUM CHLORIDE 0.9% 10ML FLUSH IV SCH (20:59)
[2021-06-26] MEDS: BENZONATATE 100 MG CAPSULE PO PRN ×3 (01:54→21:05)
[2021-06-26] MEDS: ONDANSETRON INJ 2 MG/ML 2 ML VIAL IV PRN ×4 (01:58→20:19)
[2021-06-26] MEDS: dexAMETHasone 6 MG in SYRINGE 0 ML IV SCH (05:36)
[2021-06-26 06:23] LABS: Hematocrit (blood only) 39.6 % (37-47); Hemoglobin 12.9 g/dL (12.0-16.0); Mean Corpuscular Hemoglobin 28.8 pg (25-34); Mean Corpuscular Hgb Conc 32.6 g/dL (32-36); Mean Corpuscular Volume 88.4 fL (80-100); Mean Platelet Volume 10.6 fL (7.4-10.4); Platelet Count 118 K/uL (130-400); RDW Coefficient of Variation 12.7 % (11.5-14.5); RDW Standard Deviation 40.8 fL (36.4-46.3); Red Blood Count 4.48 M/uL (4.2-5.4); White Blood Count 2.78 K/uL (4.8-10.8)
[2021-06-26 06:51] LABS: Albumin Level 3.1 gm/dl (3.4-5.0); BUN Creatinine Ratio 24.6 (10-20); C Reactive Protein 0.34 mg/dl (0-0.29); Calcium 8.4 mg/dl (8.5-10.1); Creatinine Clr Calc Pharmacy 160.2 ml/min; Est GFR (African American) 129.8 ml/min; Potassium 3.4 mmol/L (3.5-5.1)
[2021-06-26 06:56] LABS: Bilirubin,Total 0.4 mg/dl (0.2-1); Ferritin 611.6 ng/ml (8-388); Globulin 3.2 gm/dl (2.5-4.0); Total Protein 6.3 gm/dl (6.4-8.2)
[2021-06-26] MEDS: GABAPENTIN 300 MG CAP PO SCH ×3 (08:19→20:16)
[2021-06-26] MEDS: ENOXAPARIN INJ 40 MG/0.4 ML SYR SQ SCH ×2 (08:19→20:16)
[2021-06-26] MEDS: ACETAMINOPHEN 325 MG TAB PO PRN ×2 (08:22→17:05)
[2021-06-26] MEDS: guaiFENesin/CODEINE 100MG/10MG 5ML UDC PO PRN ×2 (08:23→21:05)
[2021-06-26] MEDS ORDERED: POTASSIUM CHLORIDE CRTAB 20 MEQ TABCR PO STA (10:05)
[2021-06-26] MEDS ORDERED: FUROSEMIDE 40 MG in SYRINGE 0 ML IV ONE (13:41)
--- NOTE | 2021-06-26 13:41 | Hospitalist Progress Note ---
Date of Service June 26, 2021 Assessment & Plan (1) Acute respiratory failure with hypoxia: Plan: Secondary to COVID-19 infection with pneumonia (2) Pneumonia due to 2019 novel coronavirus: Plan: Present on admission with fever, pleuritic cough, body aches and hypoxia on RA Testing positive for COVID-19 on 06/24/2021 Patient was not vaccinated against COVID-19 CTA chest showed no pulmonary emboli identified although exam mildly compromised by artifact. Moderate multifocal groundglass opacities throughout the lungs with developing right lower lobe consolidation consistent with viral pneumoni Continue with dexamethasone 6 mg IV daily and remdesivir Still requiring 2 L of oxygen via nasal cannula to maintain saturation Ferritin is slightly elevated and CRP unremarkable Normal Procalcitonin and lactic acid Continue supportive care with nebs, flutter valve, incentive spirometer Clinically better and will continue current management (3) Migraine headache: Plan: Has developed a migraine headache since arrival Do not have her home med Relpax on formulary but given Imitrex Tylenol and Zofran PRN We will start Imitrex for bad headache (4) Transaminitis: Plan: Liver enzyme elevated with AST 72 and ALT 89 We will monitor LFT while on IV remdesivir Liver function test has been unremarkable Hypokalemia Mostly due to poor oral intake Potassium 3.4 today, replaced Monitor BMP (5) Chronic back pain: Plan: Gabapentin TID, Flexeril as needed DVT Ppx: SQ Lovenox Code status: FULL PCP: Velma Dispo: Continue monitor closely PCU Admission and Anticipated Discharge Date Admission Date: June 24, 2021 Subjective 06/26/2021 The patient was seen and examined in telemetry unit and in the Covid room She has been feeling a little better today Complains minimal shortness of breath at rest with some cough Denies any fever and/or chills Review of Systems Review of Systems: All systems reviewed and are unremarkable except as noted below Respiratory: Minimal shortness of breath at rest Musculoskeletal: Generally very weak and lethargic Neurologic: Generally weak and lethargic Physical Exam Physical Exam: Lying in bed very anxious Constitutional: well developed, well nourished, + ill appearing and + obese Eyes: PERRL, conjunctivae normal, anicteric sclerae ENMT: external ear and nose normal, oropharynx normal Neck: trachea midline, no thyromegaly Respiratory: + respiratory distress (Minimal distress at rest) Auscultation: + diminished lung sounds and + crackles (Occasional crackles at the bases) Cardiovascular: Rate/Rhythm: regular rate and regular rhythm; not tachycardic Heart Sounds: normal S1 and normal S2; no murmur Extremities: + edema (Trace edema bilaterally) Gastrointestinal (Abdomen): Inspection/Auscultation: normal bowel sounds; abdomen not distended Percussion/Palpation: abdomen soft; abdomen nontender Musculoskeletal: No acute arthritis in any joint Neurologic: Alert, awake and oriented x3. No focal sensory and motor deficit appreciated Psychiatric: A+Ox3, euthymic affect Results & Data Results & Data ([facility]) Vital Signs (Past 12 Hours) Vital Signs Temp Pulse Pulse Resp BP Pulse Ox 06/26/21 10:58 37.2 C 62 21 109/67 94 06/26/21 08:00 66 06/26/21 07:19 37.3 C 62 12 138/83 93 06/26/21 04:25 37.0 C 64 19 108/68 93 Laboratory Results Short CBC 06/26/21 Range/Units 06:04 WBC 2.78 L (4.8-10.8) K/uL Hgb 12.9 (12.0-16.0) g/dL Hct 39.6 (37-47) % Plt Count 118 L (130-400) K/uL BMP 06/26/21 06:04 Sodium 141 Potassium 3.4 L Chloride 108 H Carbon Dioxide 26 BUN 15 Creatinine 0.62 Glucose 94 Calcium 8.4 L Liver Function 06/26/21 Range/Units 06:04 Total Bilirubin 0.4 (0.2-1) mg/dl AST 42 H (15-37) U/L ALT 74 (12-78) U/L Alkaline Phosphatase 87 (45-117) U/L Albumin 3.1 L (3.4-5.0) gm/dl Medications Administered Current Inpatient Medications Acetaminophen (Acetaminophen 325 Mg Tab) 650 mg PO Q4H PRN PRN Reason: Pain or Fever Stop: 07/24/21 21:29 Last Admin: 06/26/21 08:22 Dose: 650 mg Documented by: Benzonatate (Benzonatate 100 Mg Capsule) 100 mg PO TID PRN PRN Reason: Cough Stop: 07/24/21 15:54 Last Admin: 06/26/21 01:54 Dose: 100 mg Documented by: Calcium Carbonate (Calcium Carbonate 500 Mg Chewable Tab) 500 mg PO DAILY PRN PRN Reason: Acid Reflux Stop: 07/24/21 17:49 Last Admin: 06/25/21 05:07 Dose: 500 mg Documented by: Cyclobenzaprine HCl (Cyclobenzaprine Hcl 10 Mg Tab) 10 mg PO TID PRN PRN Reason: Muscle Spasm Stop: 07/24/21 17:46 Enoxaparin Sodium (Enoxaparin Inj 40 Mg/0.4 Ml Syr) 40 mg SQ Q12H [facility] Stop: 07/24/21 21:29 Last Admin: 06/26/21 08:19 Dose: 40 mg Documented by: Estradiol (Estradiol 0.1 Mg/Hr Tdsy) 0.1 mg TD Tu@2100 [facility] Stop: 07/24/21 20:59 Last Admin: 06/24/21 23:07 Dose: 0.1 mg Documented by: Gabapentin (Gabapentin 300 Mg Cap) 300 mg PO TID [facility] Stop: 07/24/21 20:59 Last Admin: 06/26/21 08:19 Dose: 300 mg Documented by: Guaifenesin/Codeine Phosphate (Guaifenesin/Codeine 100mg/10mg 5ml Udc) 5 ml PO Q6H PRN PRN Reason: Cough Stop: 07/24/21 15:54 Last Admin: 06/26/21 08:23 Dose: 5 ml Documented by: Remdesivir 100 mg/ Sodium (Chloride) 250 mls @ 250 mls/hr IV Q24H [facility]; Protocol Stop: 06/28/21 20:59 Last Infusion: 06/25/21 21:00 Dose: Infused Documented by: Dexamethasone 6 mg/ Syringe 1.5 mls @ 1 mls/min IV Q24H [facility] Stop: 07/03/21 06:02 Last Admin: 06/26/21 05:36 Dose: 1 mls/min Documented by: Ondansetron HCl (Ondansetron Inj 2 Mg/Ml 2 Ml Vial) 4 mg IV Q6H PRN PRN Reason: Nausea Stop: 07/24/21 18:13 Last Admin: 06/26/21 08:23 Dose: 4 mg Documented by: Polyethylene Glycol (Polyethylene (Miralax) 17 Gm Pack) 17 gm PO DAILY PRN PRN Reason: Constipation Stop: 07/24/21 21:45 Sodium Chloride (Sodium Chloride 0.9% 10ml Flush) 30 ml IV Q24H [facility] Stop: 06/28/21 21:01 Last Admin: 06/25/21 20:59 Dose: 30 ml Documented by:
[2021-06-26] MEDS ORDERED: FUROSEMIDE 40 MG/4 ML VIAL IV ONE (14:00)
[2021-06-26] MEDS ORDERED: COUGH DROP (SUGAR FREE) LOZ 24 LOZ/1 BOX BUCCAL ONE (14:10)
[2021-06-26] MEDS ORDERED: COUGH DROP (SUGAR FREE) LOZ 24 LOZ/1 BOX BUCCAL PRN (16:16)
[2021-06-26] MEDS: REMDESIVIR 100 MG in SODIUM CHLORIDE 0.9% 230 ML IV SCH (20:15)
[2021-06-26] MEDS: SODIUM CHLORIDE 0.9% 10ML FLUSH IV SCH (20:15)
[2021-06-26] MEDS ORDERED: SUMAtriptan succinate 50 MG TAB PO STA (20:42)
[2021-06-26] MEDS ORDERED: PROMETHAZINE HCL 12.5 MG in SODIUM CHLORIDE 0.9% 50 ML IV STA (22:41)
[2021-06-27] MEDS: dexAMETHasone 6 MG in SYRINGE 0 ML IV SCH (05:44)
[2021-06-27 07:04] LABS: Albumin Level 3.1 gm/dl (3.4-5.0); BUN Creatinine Ratio 25.6 (10-20); Bilirubin,Total 0.4 mg/dl (0.2-1); Calcium 8.4 mg/dl (8.5-10.1); Creatinine Clr Calc Pharmacy 169.9 ml/min; Est GFR (African American) 131.9 ml/min; Est GFR (Non-African American) 113.8 ml/min; Globulin 3.1 gm/dl (2.5-4.0); Magnesium 2.3 mg/dl (1.8-2.4); Phosphorus 4.1 mg/dl (2.5-4.9); Potassium 3.1 mmol/L (3.5-5.1); Total Protein 6.2 gm/dl (6.4-8.2)
[2021-06-27] MEDS: ENOXAPARIN INJ 40 MG/0.4 ML SYR SQ SCH ×2 (07:20→20:15)
[2021-06-27] MEDS: GABAPENTIN 300 MG CAP PO SCH ×3 (07:22→20:14)
[2021-06-27] MEDS: BENZONATATE 100 MG CAPSULE PO PRN ×2 (08:29→15:23)
[2021-06-27] MEDS: guaiFENesin/CODEINE 100MG/10MG 5ML UDC PO PRN (08:29)
[2021-06-27] MEDS: ACETAMINOPHEN 325 MG TAB PO PRN ×2 (09:13→17:50)
[2021-06-27] MEDS ORDERED: POTASSIUM CHLORIDE CRTAB 20 MEQ TABCR PO STA (09:39)
[2021-06-27] MEDS: CALCIUM CARBONATE 500 MG CHEWABLE TAB PO PRN (10:03)
[2021-06-27] MEDS ORDERED: FUROSEMIDE 40 MG in SYRINGE 0 ML IV ONE (13:30)
[2021-06-27] MEDS ORDERED: FUROSEMIDE 40 MG/4 ML VIAL IV ONE (13:30)
--- NOTE | 2021-06-27 14:38 | Hospitalist Progress Note ---
Date of Service June 27, 2021 Assessment & Plan (1) Acute respiratory failure with hypoxia: Plan: Secondary to COVID-19 infection with pneumonia (2) Pneumonia due to 2019 novel coronavirus: Plan: Present on admission with fever, pleuritic cough, body aches and hypoxia on RA Testing positive for COVID-19 on 06/24/2021 Patient was not vaccinated against COVID-19 CTA chest showed no pulmonary emboli identified although exam mildly compromised by artifact. Moderate multifocal groundglass opacities throughout the lungs with developing right lower lobe consolidation consistent with viral pneumoni Continue with dexamethasone 6 mg IV daily and remdesivir Still requiring 2 L of oxygen via nasal cannula to maintain saturation Ferritin is slightly elevated and CRP unremarkable Normal Procalcitonin and lactic acid Continue supportive care with nebs, flutter valve, incentive spirometer Has been improving-will finish the course of remdesivir We will get PT and OT evaluation Likely discharge day after tomorrow-we will need to do 2 steps O2 saturation before discharge (3) Migraine headache: Plan: Has developed a migraine headache since arrival Do not have her home med Relpax on formulary but given Imitrex Tylenol and Zofran PRN We will start Imitrex for bad headache (4) Transaminitis: Plan: Liver enzyme elevated with AST 72 and ALT 89 We will monitor LFT while on IV remdesivir Liver function test has been unremarkable Hypokalemia Mostly due to poor oral intake Potassium 3.4 today, replaced Monitor BMP (5) Chronic back pain: Plan: Gabapentin TID, Flexeril as needed DVT Ppx: SQ Lovenox Code status: FULL PCP: Velma Dispo: Continue monitor closely PCU Admission and Anticipated Discharge Date Admission Date: June 24, 2021 Subjective 06/26/2021 The patient was seen and examined in telemetry unit and in the Covid room She has been feeling a little better today Complains minimal shortness of breath at rest with some cough Denies any fever and/or chills 06/27/2021 The patient was seen and examined in telemetry unit and in the Covid room She has been feeling much better today and has been saturating just about 90% on room air Still has profound weakness and tiredness Denies any fever and no chills Review of Systems Review of Systems: All systems reviewed and are unremarkable except as noted below Respiratory: Minimal shortness of breath at rest Musculoskeletal: Generally very weak and lethargic Neurologic: Generally weak and lethargic Physical Exam Physical Exam: Lying in bed very anxious Constitutional: well developed, well nourished, + ill appearing and + obese Eyes: PERRL, conjunctivae normal, anicteric sclerae ENMT: external ear and nose normal, oropharynx normal Neck: trachea midline, no thyromegaly Respiratory: + respiratory distress (Minimal distress at rest) Auscultation: + diminished lung sounds and + crackles (Occasional crackles at the bases) Cardiovascular: Rate/Rhythm: regular rate and regular rhythm; not tachycardic Heart Sounds: normal S1 and normal S2; no murmur Extremities: + edema (Trace edema bilaterally) Gastrointestinal (Abdomen): Inspection/Auscultation: normal bowel sounds; ab domen not distended Percussion/Palpation: abdomen soft; abdomen nontender Musculoskeletal: No acute arthritis in any joint Neurologic: Alert, awake and oriented x3. She remains generally weak and tired Psychiatric: A+Ox3, euthymic affect Results & Data Results & Data ([facility]) Vital Signs (Past 12 Hours) Vital Signs Temp Pulse Pulse Pulse Resp BP BP 06/27/21 11:10 37 C 65 20 160/61 H 06/27/21 08:46 58 L 06/27/21 07:23 36.8 C 62 20 138/87 06/27/21 03:14 36.7 C 50 L 18 123/73 Pulse Ox 06/27/21 11:10 89 L 06/27/21 08:46 06/27/21 07:23 93 06/27/21 03:14 91 Laboratory Results [facility] 06/27/21 05:34 Sodium 143 Potassium 3.1 L Chloride 107 Carbon Dioxide 28 BUN 15 Creatinine 0.59 L Glucose 90 Calcium 8.4 L Liver Function 06/27/21 Range/Units 05:34 Total Bilirubin 0.4 (0.2-1) mg/dl AST 36 (15-37) U/L ALT 73 (12-78) U/L Alkaline Phosphatase 82 (45-117) U/L Albumin 3.1 L (3.4-5.0) gm/dl Medications Administered Current Inpatient Medications Acetaminophen (Acetaminophen 325 Mg Tab) 650 mg PO Q4H PRN PRN Reason: Pain or Fever Stop: 07/24/21 21:29 Last Admin: 06/27/21 09:13 Dose: 650 mg Documented by: Benzonatate (Benzonatate 100 Mg Capsule) 100 mg PO TID PRN PRN Reason: Cough Stop: 07/24/21 15:54 Last Admin: 06/27/21 08:29 Dose: 100 mg Documented by: Calcium Carbonate (Calcium Carbonate 500 Mg Chewable Tab) 500 mg PO DAILY PRN PRN Reason: Acid Reflux Stop: 07/24/21 17:49 Last Admin: 06/27/21 10:03 Dose: 500 mg Documented by: Cyclobenzaprine HCl (Cyclobenzaprine Hcl 10 Mg Tab) 10 mg PO TID PRN PRN Reason: Muscle Spasm Stop: 07/24/21 17:46 Enoxaparin Sodium (Enoxaparin Inj 40 Mg/0.4 Ml Syr) 40 mg SQ Q12H [facility] Stop: 07/24/21 21:29 Last Admin: 06/27/21 07:20 Dose: 40 mg Documented by: Estradiol (Estradiol 0.1 Mg/Hr Tdsy) 0.1 mg TD Tu@2100 [facility] Stop: 07/24/21 20:59 Last Admin: 06/24/21 23:07 Dose: 0.1 mg Documented by: Gabapentin (Gabapentin 300 Mg Cap) 300 mg PO TID [facility] Stop: 07/24/21 20:59 Last Admin: 06/27/21 13:32 Dose: 300 mg Documented by: Guaifenesin/Codeine Phosphate (Guaifenesin/Codeine 100mg/10mg 5ml Udc) 5 ml PO Q6H PRN PRN Reason: Cough Stop: 07/24/21 15:54 Last Admin: 06/27/21 08:29 Dose: 5 ml Documented by: Remdesivir 100 mg/ Sodium (Chloride) 250 mls @ 250 mls/hr IV Q24H [facility]; Protocol Stop: 06/28/21 20:59 Last Infusion: 06/26/21 21:59 Dose: Infused Documented by: Dexamethasone 6 mg/ Syringe 1.5 mls @ 1 mls/min IV Q24H [facility] Stop: 07/03/21 06:02 Last Admin: 06/27/21 05:44 Dose: 1 mls/min Documented by: Menthol (Cough Drop (Sugar Free) Joan 24 Joan/1 Box) 1 joan BUCCAL PRN PRN PRN Reason: Sore Throat Stop: 07/26/21 16:15 Ondansetron HCl (Ondansetron Inj 2 Mg/Ml 2 Ml Vial) 4 mg IV Q6H PRN PRN Reason: Nausea Stop: 07/24/21 18:13 Last Admin: 06/26/21 20:19 Dose: 4 mg Documented by: Polyethylene Glycol (Polyethylene (Miralax) 17 Gm Pack) 17 gm PO DAILY PRN PRN Reason: Constipation Stop: 07/24/21 21:45 Sodium Chloride (Sodium Chloride 0.9% 10ml Flush) 30 ml IV Q24H [facility] Stop: 06/28/21 21:01 Last Admin: 06/26/21 20:15 Dose: 30 ml Documented by:
[2021-06-27] MEDS: SODIUM CHLORIDE 0.9% 10ML FLUSH IV SCH (20:13)
[2021-06-27] MEDS: REMDESIVIR 100 MG in SODIUM CHLORIDE 0.9% 230 ML IV SCH (20:13)
[2021-06-28] MEDS: dexAMETHasone 6 MG in SYRINGE 0 ML IV SCH (05:53)
[2021-06-28] MEDS: guaiFENesin/CODEINE 100MG/10MG 5ML UDC PO PRN ×2 (05:53→12:31)
[2021-06-28] MEDS: BENZONATATE 100 MG CAPSULE PO PRN ×2 (05:53→12:31)
[2021-06-28 06:53] LABS: Alanine Aminotransferase 71 U/L (12-78); Albumin Level 3.3 gm/dl (3.4-5.0); Aspartate Aminotransferase 29 U/L (15-37); BUN Creatinine Ratio 25.3 (10-20); Blood Urea Nitrogen 16 mg/dl (7-18); Calcium 8.2 mg/dl (8.5-10.1); Carbon Dioxide 30 mmol/L (21-32); Chloride 105 mmol/L (98-107); Creatinine Clr Calc Pharmacy 160.7 ml/min; Est GFR (African American) 129.1 ml/min; Est GFR (Non-African American) 111.4 ml/min; Glucose 93 mg/dl (70-99); Potassium 3.4 mmol/L (3.5-5.1); Sodium 140 mmol/L (136-145)
[2021-06-28 06:56] LABS: Alkaline Phosphatase 81 U/L (45-117); Bilirubin,Total 0.5 mg/dl (0.2-1); C Reactive Protein < 0.29 mg/dl (0-0.29); Globulin 3.2 gm/dl (2.5-4.0); Total Protein 6.5 gm/dl (6.4-8.2)
[2021-06-28] MEDS: ENOXAPARIN INJ 40 MG/0.4 ML SYR SQ SCH (07:17)
[2021-06-28] MEDS: GABAPENTIN 300 MG CAP PO SCH (07:17)
[2021-06-28] MEDS ORDERED: POTASSIUM CHLORIDE CRTAB 20 MEQ TABCR PO STA (07:55)
[2021-06-28] MEDS: CALCIUM CARBONATE 500 MG CHEWABLE TAB PO PRN (08:15)
[2021-06-28] MEDS: REMDESIVIR 100 MG in SODIUM CHLORIDE 0.9% 230 ML IV SCH (12:24)
--- NOTE | 2021-06-28 13:17 | Hospitalist Progress Note ---
Date of Service June 28, 2021 Assessment & Plan (1) Acute respiratory failure with hypoxia: Plan: Secondary to COVID-19 infection with pneumonia (2) Pneumonia due to 2019 novel coronavirus: Plan: Present on admission with fever, pleuritic cough, body aches and hypoxia on RA Testing positive for COVID-19 on 06/24/2021 Patient was not vaccinated against COVID-19 CTA chest showed no pulmonary emboli identified although exam mildly compromised by artifact. Moderate multifocal groundglass opacities throughout the lungs with developing right lower lobe consolidation consistent with viral pneumoni Continue with dexamethasone 6 mg IV daily and remdesivir Still requiring 2 L of oxygen via nasal cannula to maintain saturation Ferritin is slightly elevated and CRP unremarkable Normal Procalcitonin and lactic acid Continue supportive care with nebs, flutter valve, incentive spirometer Has been improving-will finish the course of remdesivir We will get PT and OT evaluation-did not await for PT and OT evaluation She passed the 2 years step O2 saturation test and does not require any oxygen with ambulation She has been ambulating well without any difficulties and wants to go home today She will be discharged home this afternoon (3) Migraine headache: Plan: Has developed a migraine headache since arrival Do not have her home med Relpax on formulary but given Imitrex Tylenol and Zofran PRN We will start Imitrex for bad headache (4) Transaminitis: Plan: Liver enzyme elevated with AST 72 and ALT 89 We will monitor LFT while on IV remdesivir Liver function test has been unremarkable Hypokalemia Mostly due to poor oral intake Potassium 3.4 today, replaced Monitor BMP-normalized (5) Chronic back pain: Plan: Gabapentin TID, Flexeril as needed Morbid Obesity As per BMI critria Advised weight reduction DVT Ppx: SQ Lovenox Code status: FULL PCP: Velma Dispo: Continue monitor closely PCU Admission and Anticipated Discharge Date Admission Date: June 24, 2021 Subjective 06/26/2021 The patient was seen and examined in telemetry unit and in the Covid room She has been feeling a little better today Complains minimal shortness of breath at rest with some cough Denies any fever and/or chills 06/27/2021 The patient was seen and examined in telemetry unit and in the Covid room She has been feeling much better today and has been saturating just about 90% on room air Still has profound weakness and tiredness Denies any fever and no chills 06/28/2021 The patient was seen and examined in telemetry unit and in the Covid room She has been feeling much better today and saturating normally with room air Still has some cough but denies any other symptoms He passed the 2 steps O2 saturation test and he will be discharged today Review of Systems Review of Systems: All systems reviewed and are unremarkable except as noted below Respiratory: Minimal shortness of breath at rest Musculoskeletal: Generally very weak and lethargic-improved a lot Neurologic: Generally weak and lethargic-improved a lot Physical Exam Physical Exam: Lying in bed very anxious Constitutional: well developed, well nourished, + ill appearing and + obese Eyes: PERRL, conjunctivae normal, anicteric sclerae ENMT: external ear and nose normal, oropharynx normal Neck: trachea midline, no thyromegaly Respiratory: no respiratory distress (Minimal distress at rest) Auscultation: + diminished lung sounds; no crackles (Occasional crackles at the bases) Cardiovascular: Rate/Rhythm: regular rate and regular rhythm; not tachycardic Heart Sounds: normal S1 and normal S2; no murmur Extremities: + edema (T race edema bilaterally) Gastrointestinal (Abdomen): Inspection/Auscultation: normal bowel sounds; abdomen not distended Percussion/Palpation: abdomen soft; abdomen nontender Musculoskeletal: No acute arthritis in any joint Neurologic: Alert, awake and oriented x3. No focal sensory and motor deficit appreciated Psychiatric: A+Ox3, euthymic affect Results & Data Results & Data ([facility]) Vital Signs (Past 12 Hours) Vital Signs Temp Pulse Pulse Pulse Pulse Pulse Resp 06/28/21 11:25 67 18 06/28/21 10:45 72 81 06/28/21 07:12 36.6 C 66 13 06/28/21 07:00 53 L 06/28/21 03:13 36.6 C 62 18 06/28/21 01:38 51 L Resp Resp BP BP Pulse Ox Pulse Ox Pulse Ox 06/28/21 11:25 125/88 94 06/28/21 10:45 16 20 93 93 06/28/21 07:12 95 06/28/21 07:00 06/28/21 03:13 135/71 95 06/28/21 01:38 Laboratory Results [facility] 06/28/21 05:40 Sodium 140 Potassium 3.4 L Chloride 105 Carbon Dioxide 30 BUN 16 Creatinine 0.63 Glucose 93 Calcium 8.2 L Liver Function 06/28/21 Range/Units 05:40 Total Bilirubin 0.5 (0.2-1) mg/dl AST 29 (15-37) U/L ALT 71 (12-78) U/L Alkaline Phosphatase 81 (45-117) U/L Albumin 3.3 L (3.4-5.0) gm/dl Medications Administered Current Inpatient Medications Acetaminophen (Acetaminophen 325 Mg Tab) 650 mg PO Q4H PRN PRN Reason: Pain or Fever Stop: 07/24/21 21:29 Last Admin: 06/27/21 17:50 Dose: 650 mg Documented by: Benzonatate (Benzonatate 100 Mg Capsule) 100 mg PO TID PRN PRN Reason: Cough Stop: 07/24/21 15:54 Last Admin: 06/28/21 12:31 Dose: 100 mg Documented by: Calcium Carbonate (Calcium Carbonate 500 Mg Chewable Tab) 500 mg PO DAILY PRN PRN Reason: Acid Reflux Stop: 07/24/21 17:49 Last Admin: 06/28/21 08:15 Dose: 500 mg Documented by: Cyclobenzaprine HCl (Cyclobenzaprine Hcl 10 Mg Tab) 10 mg PO TID PRN PRN Reason: Muscle Spasm Stop: 07/24/21 17:46 Enoxaparin Sodium (Enoxaparin Inj 40 Mg/0.4 Ml Syr) 40 mg SQ Q12H [facility] Stop: 07/24/21 21:29 Last Admin: 06/28/21 07:17 Dose: 40 mg Documented by: Estradiol (Estradiol 0.1 Mg/Hr Tdsy) 0.1 mg TD Tu@2100 [facility] Stop: 07/24/21 20:59 Last Admin: 06/24/21 23:07 Dose: 0.1 mg Documented by: Gabapentin (Gabapentin 300 Mg Cap) 300 mg PO TID [facility] Stop: 07/24/21 20:59 Last Admin: 06/28/21 07:17 Dose: 300 mg Documented by: Guaifenesin/Codeine Phosphate (Guaifenesin/Codeine 100mg/10mg 5ml Udc) 5 ml PO Q6H PRN PRN Reason: Cough Stop: 07/24/21 15:54 Last Admin: 06/28/21 12:31 Dose: 5 ml Documented by: Remdesivir 100 mg/ Sodium (Chloride) 250 mls @ 250 mls/hr IV Q24H [facility]; Protocol Stop: 06/28/21 20:59 Last Admin: 06/28/21 12:24 Dose: 250 mls/hr Documented by: Dexamethasone 6 mg/ Syringe 1.5 mls @ 1 mls/min IV Q24H [facility] Stop: 07/03/21 06:02 Last Admin: 06/28/21 05:53 Dose: 1 mls/min Documented by: Menthol (Cough Drop (Sugar Free) Joan 24 Joan/1 Box) 1 joan BUCCAL PRN PRN PRN Reason: Sore Throat Stop: 07/26/21 16:15 Ondansetron HCl (Ondansetron Inj 2 Mg/Ml 2 Ml Vial) 4 mg IV Q6H PRN PRN Reason: Nausea Stop: 07/24/21 18:13 Last Admin: 06/26/21 20:19 Dose: 4 mg Documented by: Polyethylene Glycol (Polyethylene (Miralax) 17 Gm Pack) 17 gm PO DAILY PRN PRN Reason: Constipation Stop: 07/24/21 21:45 Sodium Chloride (Sodium Chloride 0.9% 10ml Flush) 30 ml IV Q24H [facility] Stop: 06/28/21 21:01 Last Admin: 06/27/21 20:13 Dose: 30 ml Documented by:
--- NOTE | 2021-06-29 08:51 | Discharge Summary ---
Date of Service June 29, 2021 Admission HPI Per Admitting Provider This is a 41yo F with a PMH of chronic back pain who presents with fever and body aches x 8 days. First developed fever, chills and body aches as well as diarrhea and decreased appetite. Later on this week she also developed productive cough, and pleuritic chest pain. Patient endorses a small amount of bright red blood streaking mucous. The amount is less than a tea spoon. Lost ability to taste but still has sense of smell. had similar symptoms and tested positive for Covid this week. Is not vaccinated. No respiratory issues at baseline. No lightheadedness, vomiting, abdominal pain, dysuria, diarrhea or constipation. Follows with Dr. Carreon for primary care. Admission Exam Per Admitting Provider Physical Exam: General- No acute distress Head- atraumatic Eyes- PERRL, EOMI, ENT- oropharynx clear Neck- supple, no JVD Lungs- diminished BS Heart- regular rhythm; no murmur Abdomen- normal bowel sounds, soft, nontender Extremities- no calf tenderness Neuro- alert, oriented x 3; PERRL, EOMI; no facial palsy; no dysarthria Skin- warm & dry f Principal Diagnosis Acute respiratory failure with hypoxia, COVID-19 infection with pneumonia, migraine Discharge Exam Constitutional well developed, well nourished, + ill appearing and + obese Eyes PERRL, conjunctivae normal, anicteric sclerae ENMT external ear and nose normal, oropharynx normal Neck trachea midline, no thyromegaly Respiratory no respiratory distress (Minimal distress at rest) Auscultation: + diminished lung sounds; no crackles (Occasional crackles at the bases) Cardiovascular Rate/Rhythm: regular rate and regular rhythm; not tachycardic Heart Sounds: normal S1 and normal S2; no murmur Extremities: + edema (Trace edema bilaterally) Gastrointestinal (Abdomen) Inspection/Auscultation: normal bowel sounds; abdomen not distended Percussion/Palpation: abdomen soft; abdomen nontender Psychiatric A+Ox3, euthymic affect Discharge Data Allergies Allergy/AdvReac Type Severity Reaction Status Date / Time No Known Allergies Allergy Verified 06/24/21 12:25 Consultations 06/24/21 14:27 ED Decision to Admit Stat Ordered Studies 06/24/21 12:39 CT angio chest PE protocol Stat Hospital Course (1) Acute respiratory failure with hypoxia: Secondary to COVID-19 infection with pneumonia (2) Pneumonia due to 2019 novel coronavirus: Present on admission with fever, pleuritic cough, body aches and hypoxia on RA Testing positive for COVID-19 on 06/24/2021 Patient was not vaccinated against COVID-19 CTA chest showed no pulmonary emboli identified although exam mildly compromised by artifact. Moderate multifocal groundglass opacities throughout the lungs with developing right lower lobe consolidation consistent with viral pneumoni Continue with dexamethasone 6 mg IV daily and remdesivir Still requiring 2 L of oxygen via nasal cannula to maintain saturation Ferritin is slightly elevated and CRP unremarkable Normal Procalcitonin and lactic acid Continue supportive care with nebs, flutter valve, incentive spirometer Has been improving-will finish the course of remdesivir We will get PT and OT evaluation-did not await for PT and OT evaluation She passed the 2 years step O2 saturation test and does not require any oxygen with ambulation She has been ambulating well without any difficulties and wants to go home today She will be discharged home this afternoon (3) Migraine headache: Has developed a migraine headache since arrival Do not have her home med Relpax on formulary but given Imitrex Tylenol and Zofran PRN We will start Imitrex for bad headache (4) Transaminitis: Liver enzyme elevated with AST 72 and ALT 89 We will monitor LFT while on IV remdesivir Liver function test has been unremarkable Hypokalemia Mostly due to poor oral intake Potassium 3.4 today, replaced Monitor BMP-normalized (5) Chronic back pain: Gabapentin TID, Flexeril as needed Morbid Obesity As per BMI critria Advised weight reduction DVT Ppx: SQ Lovenox Code status: FULL PCP: Velma Dispo: Continue monitor closely PCU Total Time Total Time Spent Total Time Spent (In Minutes): 35 minutes Discharge Plan Discharge Items Patient Disposition: Home - Self-Care Reason For Visit: COVID PNA Discharge Diagnosis: Acute respiratory failure with hypoxia, COVID-19 infection with pneumonia, migraine Condition on Discharge: Good Activity: Resume your previous activity Non-emergency contact: Primary Care Provider Call non-emergency contact if: you have any medication questions and your symptoms worsen Follow-up/Referrals: Jovanny Carreon V., [Primary Care Provider] - (You will be called with an appointment to see your primary care physician within 7 days) Diet: Regular Addtl Attending Provider Instructions: Please take it easy for the next few days Maintain strict isolation as mentioned below until of this month Take your medications as advised Keep appointment with your primary care provider Try to hold or take less of cyclobenzaprine and gabapentin to reduce drug interaction with your cough medicationsHome Isolation COVID-19 Instructions The following information about Home Isolation is from the CDC Website: https://www.cdc.gov/coronavirus/2019-ncov/hcp/hbtgzkio-whqalhi-xjfksr.html Stay home except to get medical care People who are mildly ill with COVID-19 are able to isolate at home during their illness. You should restrict activities outside your home, except for getting medical care. Do not go to work, school, or public areas. Avoid using public tra nsportation, ride-sharing, or taxis. Separate yourself from other people and animals in your home People: As much as possible, you should stay in a specific room and away from other people in your home. Also, you should use a separate bathroom, if available. Animals: You should restrict contact with pets and other animals while you are sick with COVID-19, just like you would around other people. Although there have not been reports of pets or other animals becoming sick with COVID-19, it is still recommended that people sick with COVID-19 limit contact with animals until more information is known about the virus. When possible, have another member of your household care for your animals while you are sick. If you are sick with COVID-19, avoid contact with your pet, including petting, snuggling, being kissed or licked, and sharing food. If you must care for your pet or be around animals while you are sick, wash your hands before and after you interact with pets and wear a face mask. Call ahead before visiting your doctor If you have a medical appointment, call the healthcare provider and tell them that you have or may have COVID-19. This will help the healthcare providers office take steps to keep other people from getting infected or exposed. Wear a face mask You should wear a face mask when you are around other people (e.g., sharing a room or vehicle) or pets and before you enter a healthcare providers office. If you are not able to wear a face mask (for example, because it causes trouble breathing), then people who live with you should not stay in the same room with you, or they should wear a face mask if they enter your room. Cover your coughs and sneezes Cover your mouth and nose with a tissue when you cough or sneeze. Throw used tissues in a lined trash can. Immediately wash your hands with soap and water for at least 20 seconds or, if soap and water are not available, clean your hands with an alcohol-based hand cash office worker that contains at least 60% alcohol. Clean your hands often Wash your hands often with soap and water for at least 20 seconds, especially after blowing your nose, coughing, or sneezing; going to the bathroom; and before eating or preparing food. If soap and water are not readily available, use an alcohol-based hand cash office worker with at least 60% alcohol, covering all surfaces of your hands and rubbing them together until they feel dry. Soap and water are the best option if hands are visibly dirty. Avoid touching your eyes, nose, and mouth with unwashed hands. Avoid sharing personal household items You should not share dishes, drinking glasses, cups, eating utensils, towels, or bedding with other people or pets in your home. After using these items, they should be washed thoroughly with soap and water. Clean all high-touch surfaces everyday High touch surfaces include counters, tabletops, doorknobs, bathroom fixtures, toilets, phones, keyboards, tablets, and bedside tables. Also, clean any surfaces that may have blood, stool, or body fluids on them. Use a household cleaning spray or wipe, according to the label instructions. Labels contain instructions for safe and effective use of the cleaning product including precautions you should take when applying the product, such as wearing gloves and making sure you have good ventilation during use of the product. Monitor your symptoms Seek prompt medical attention if your illness is worsening (e.g., difficulty breathing).Beforeseeking care, call your healthcare provider and tell them that you have, or are being evaluated for, COVID-19. Put on a face mask before you enter the facility. These steps will help the healthcare providers office to keep other people in the office or waiting room from getting infected or exposed. Ask your healthcare provider to call the local or [facility] health department. Persons who are placed under active monitoring or facilitated self- monitoring should follow instructions provided by their local health department or occupational health professionals, as appropriate. When working with your local health department check their available hours. If you have a medical emergency and need to call 911, notify the dispatch personnel that you have, or are being evaluated for COVID-19. If possible, put on a face mask before emergency medical services arrive. Discontinuing home isolation Patients with confirmed COVID-19 should remain under home isolation precautions until the risk of secondary transmission to others is thought to be low. The decision to discontinue home isolation precautions should be made on a [id number] basis, in consultation with healthcare providers and [facility] and local health departments. Pending Studies at Discharge: No Stand-Alone Forms: [facility] Pure Storage, Smoking Cessation Medications and DC Order Prescriptions: New benzonatate [Tessalon Perles] 100 mg Capsule 100 mg PO TID PRN (Reason: cough) 10 Days Qty: 30 RF: 0 codeine-guaifenesin [Guaiatussin AC] 10-100 mg/5 mL Liquid 5 ml PO Q6H PRN (Reason: cough) 5 Days Qty: 60 RF: 0 dexamethasone 6 mg tablet 6 mg PO DAILY Qty: 5 RF: 0 Continued cyclobenzaprine 10 mg tablet 10 mg PO TID PRN (Reason: Muscle Spasm) RF: 0 estradiol [Jazmyn] 0.1 mg/24 hr patch semiweekly 1 patch topical 2XWK RF: 0 ibuprofen 200 mg Tablet 400 mg PO Q6H PRN (Reason: Pain) RF: 0 eletriptan 40 mg Tablet 40 mg PO UD PRN (Reason: Migraine Headache) RF: 0 Otc Acid Accounts Payable Payroll Coordinator 1 tab PO DAILY PRN (Reason: Acid Reflux) RF: 0 gabapentin 300 mg Tablet 300 mg PO TID RF: 0 Discharge Orders: Discharge Order (Routine); Ordered 06/28/21 Ordered By: Hammad Siddiqui Admission Data Admit Date/Time: 06/24/21 14:40 Attending Provider: Hammad Siddiqui Admit Provider: Shelly Wan Primary Care Provider: Jovanny Carreon V. Other Providers: Shelly Wan Other Interventions: Discharge Summary Assessment (RN) Last Done: 06/28/21 13:53
== END 2021-06-28 14:19 | disposition home or self-care (01) | DRG 177 ==
LOC: ED 09:29 → SUATTDRO 14:40 → 2E 14:40